=== PATIENT | male | born 1965 | race Caucasian/White ===

== ENCOUNTER 2017-12-14 00:32 | Emergency (ER) | payer BC, OTHER ==
[~2017-12-14] VITALS: Ht 175.3 cm; Wt 97.5 kg
[2017-12-14 00:37] VITALS: BP 134/72
--- NOTE | 2017-12-14 00:39 | NUR ---
PT. BIB TO [facility]
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
[2017-12-14 02:45] VITALS: BP 141/82
--- NOTE | 2017-12-14 02:45 | NUR ---
Patient discharged with v/s stable. Written and verbal after care instructions given and explained. Patient alert, oriented and verbalized understanding of instructions. Ambulatory with crutches. Excellent demo. All questions addressed prior to discharge. ID band removed. Patient advised to follow up with PMD and Orthopedic consult.
== END 2017-12-14 02:45 | disposition home or self-care (01) ==
LOC: MED 00:32
DX: S86.012A Strain of left Achilles tendon, initial encounter (principal); X58.XXXA Exposure to other specified factors, initial encounter; Y93.89 Activity, other specified; Y92.411 Interstate highway as the place of occurrence of the external cause; Y99.0 Civilian activity done for income or pay
CPT/HCPCS: 29515; 73610; 99284